=== PATIENT | female | born 1985 | race African-American/Black ===

== ENCOUNTER 2017-01-23 02:36 | Emergency (ER) | payer OTHER ==
[~2017-01-23] VITALS: Ht 162.6 cm; Wt 79.4 kg
[~2017-01-23 02:36] MED LIST: IBUPROFEN 400400 M1 PO; IRON325 PO; LORTAB 5 MG/5001 TA1 PO; NO HOME MEDS; NYQUIL D COLD295 ML PO; TYLENOL COLD &1 EACH PO
[2017-01-23 03:12] LABS: ABSOLUTE NEUTROPHILS 3.8 thou/uL (1.4-8.2); BASOPHILS 1.3 % (0.0-2.0); EOSINOPHILS 1.1 % (0.0-3.0); HEMATOCRIT 29.5 % (37.0-47.0); HEMOGLOBIN 8.8 gm/dL (12.0-15.0); LYMPHOCYTES 28.9 % (24.0-44.0); MCH 17.9 pg (26.0-34.0); MCHC 29.8 g/dL (28.0-37.0); MCV 60.1 fL (80.0-100.0); MONOCYTES 8.1 % (1.0-8.0); PLATELET COUNT 285 thou/uL (150-400); POLYS 60.6 % (36.0-66.0); RBC 4.91 mil/uL (4.20-5.00); RDW 19.7 % (10.5-14.5); WBC 6.3 thou/uL (4.0-11.0)
[2017-01-23 03:13] LABS: MANUAL DIFF NO
[2017-01-23 03:27] LABS: ANION GAP 15 mmol/L (7-16); BUN 10 mg/dL (7-18); CALCIUM 8.4 mg/dL (8.5-10.1); CHLORIDE 101 mmol/L (98-107); CO2 20 mmol/L (21-32); CREATININE 0.9 mg/dL (0.6-1.0); GLUCOSE 120 mg/dL (74-106); POTASSIUM 3.5 mmol/L (3.5-5.1); SODIUM 136 mmol/L (136-145)
[2017-01-23 03:31] LABS: ALKALINE PHOSPHATASE 51 U/L (46-116); DIRECT BILIRUBIN < 0.1 mg/dL (<0.1-0.3); SGOT 22 U/L (15-37); SGPT 13 U/L (30-65); TOTAL BILIRUBIN 0.3 mg/dL (<0.1-1.0); TOTAL PROTEIN 8.1 g/dL (6.4-8.2)
[2017-01-23 03:47] LABS: ANISOCYTOSIS 2+; HYPOCHROMASIA 3+; MICROCYTES 3+
[2017-01-23 03:56] LABS: URINE BILIRUBIN NEGATIVE (Negative); URINE BLOOD TRACE (Negative); URINE COLOR YELLOW; URINE GLUCOSE-RANDOM* NEGATIVE (Negative); URINE KETONES NEGATIVE (Negative); URINE NITRITE NEGATIVE (Negative); URINE PROTEIN (DIPSTICK) NEGATIVE (Negative); URINE SPECIFIC GRAVITY >= 1.030 (1.003-1.035); URINE UROBILINOGEN 0.2 E.U./dl (0.2-1.0)
[2017-01-23 04:02] LABS: AMP/METHAMP Negative (Negative); BARBITURATES Negative (Negative); BENZODIAZEPINES Negative (Negative); COCAINE Negative (Negative); METHADONE Negative (Negative); OPIATES Negative (Negative); PCP Negative (Negative); THC Negative (Negative)
[2017-01-23 04:04] LABS: CASTS None Seen /LPF (None Seen); SQUAMOUS >10 Many /LPF (0-3)
[2017-01-23 04:05] LABS: BACTERIA 1-9 Few /HPF (None Seen); CRYSTALS None Seen /LPF (None Seen); URINE RBC 0-2 Rare /HPF (0-2); URINE WBC 0-5 Rare /HPF (0-5)
[2017-01-23 04:17] VITALS: BP 112/72
== END 2017-01-23 04:17 | disposition home or self-care (01) ==
LOC: ER 02:36
PROVIDERS: Emergency Medicine
DX: F10.129 Alcohol abuse with intoxication, unspecified (principal); D64.9 Anemia, unspecified; Z88.5 Allergy status to narcotic agent

== ENCOUNTER 2017-10-30 21:02 | Emergency (ER) | payer OTHER ==
[~2017-10-30] VITALS: Ht 160 cm; Wt 78.9 kg
[2017-10-30 22:20] VITALS: BP 112/62
== END 2017-10-30 23:20 | disposition home or self-care (01) ==
LOC: ER 21:02
DX: J02.0 Streptococcal pharyngitis (principal); Z88.5 Allergy status to narcotic agent

== ENCOUNTER 2020-06-07 19:58 | Emergency (ER) | payer OTHER ==
[~2020-06-07] VITALS: Ht 162.6 cm; Wt 68.0 kg
[2020-06-07 21:20] VITALS: BP 132/76
== END 2020-06-07 22:03 | disposition home or self-care (01) ==
LOC: ER 19:58
DX: S16.1XXA Strain of muscle, fascia and tendon at neck level, initial encounter (principal); M25.522 Pain in left elbow; M25.532 Pain in left wrist; M25.561 Pain in right knee; M25.562 Pain in left knee; Z98.51 Tubal ligation status; Z88.6 Allergy status to analgesic agent; V89.2XXA Person injured in unspecified motor-vehicle accident, traffic, initial encounter; Y93.I9 Activity, other involving external motion; Y92.488 Other paved roadways as the place of occurrence of the external cause; Y99.8 Other external cause status